=== PATIENT | male | born 1950 | race Two or more races ===

== ENCOUNTER 2018-08-31 05:35 | Inpatient (IN) | payer OTHER ==
[~2018-08-31] VITALS: Ht 182.9 cm; Wt 104.3 kg
[2018-08-31] MEDS ORDERED: oxyCODONE HCL SR 10MG TAB.SR.12H PO ONE (05:46)
[2018-08-31] MEDS ORDERED: CELECOXIB 100 MG CAPSULE ONE (05:46)
[2018-08-31] MEDS ORDERED: ACETAMINOPHEN ES 500 MG TABLET ONE (05:46)
[2018-08-31] MEDS ORDERED: METOCLOPRAMIDE HCL 10 MG/2 ML VIAL ONE (05:46)
[2018-08-31] MEDS ORDERED: KETOROLAC TROMETHAMINE INJ 30 MG/ML VIAL ONE ×2 (06:32→10:59)
[2018-08-31] MEDS ORDERED: BACITRACIN 50000 UNITS/VIAL ONE (06:33)
[2018-08-31] MEDS ORDERED: MORPHINE SULFATE INJ 4 MG/ML DISP.SYRIN ONE (06:33)
[2018-08-31] MEDS ORDERED: ANESTHESIA TRAY IN PYXIS 1 EA TRAY MC ONE (06:33)
[2018-08-31] MEDS ORDERED: FENTANYL PF 250MCG/5ML AMPUL ONE (06:41)
[2018-08-31] MEDS ORDERED: MIDAZOLAM HCL 2 MG/2ML VIAL ONE (06:41)
[2018-08-31] MEDS ORDERED: EPINEPHRINE (1:1000) 1 MG/ML AMPUL ONE (06:42)
[2018-08-31] MEDS ORDERED: SUCCINYLCHOLINE CHLORIDE 20 MG/ML VIAL ONE (06:42)
[2018-08-31] MEDS ORDERED: TRANEXAMIC ACID 1,500 MG in IV NS 0.9% 50 ML IV ONE (07:30)
[2018-08-31] MEDS ORDERED: TRANEXAMIC ACID 1,500 MG in SODIUM CHLORIDE IRRIG SOLUTION 85 ML IR ONE (07:30)
[2018-08-31] MEDS ORDERED: oxyCODONE IR immediate release 5 MG ONE (10:57)
[2018-08-31] MEDS ORDERED: ASPIRIN 600 MG/SUPP.RECT RC ONE (11:00)
--- NOTE | 2018-08-31 12:05 | NUR ---
GERIATRIC PERSONAL CARE AIDE NOTES PT RECEIVED S/P RIGHT TOTAL KNEE REPLACEMENT, PT AWAKE ALERT AND VERBALLY RESPONSIVE ABLE TO MAKE NEEDS KNOWN. RESPIRATIONS EVEN AND UNLABORED, DENIES ANY PAIN OR DISCOMFORT AT THIS TIME. IV ACCESS LFA 18G PATENT AND INTACT NO REDNESS OR INFILTRATION NOTED. DRESSING TO RIGHT KNEE WITH NO BLEEDING OR DRAINAGE NOTED. ICE PACK APPLIED FOR PAIN RELIEF. ABDOULAYE AYON MADE AWARE OF PT'S ARRIVAL FOR ADMISSION ORDERS WILL CONTINUE TO MONITOR AND ASSIST WITH ADMISSION PROCESS
[2018-08-31] MEDS ORDERED: IV D5/0.45 NACL 1,000 ML IV PRN (12:30)
[2018-08-31] MEDS ORDERED: HYDROMORPHONE 1 MG/1 ML DISP.SYRIN IV PRN (12:30)
[2018-08-31] MEDS ORDERED: DOCUSATE SODIUM 100 MG CAPSULE PO PRN (12:30)
[2018-08-31] MEDS ORDERED: ZOLPIDEM TARTRATE 5 MG TABLET PO PRN ×2 (12:30→15:30)
[2018-08-31] MEDS ORDERED: ACETAMINOPHEN 325 MG TABLET PO PRN (12:30)
[2018-08-31] MEDS ORDERED: MAGNESIUM HYDROXIDE 30 ML UDC PO PRN ×2 (13:00→15:30)
[2018-08-31] MEDS: HYDROCODONE/APAP 5/325MG 1 EACH TABLET PO SCH ×3 (13:16→21:49)
[2018-08-31] MEDS ORDERED: MELO-107 PO (13:42)
[2018-08-31] MEDS ORDERED: MAG HYDROX/AL HYDROX/SIMETH 30 ML UDC PO PRN (15:30)
[2018-08-31 16:00] VITALS: BP 108/67
[2018-08-31] MEDS: ANCEF 1 GM/50 ML D5W IV SCH ×2 (16:47)
[2018-08-31] MEDS: CELECOXIB 100 MG CAPSULE PO SCH (16:49)
[2018-08-31] MEDS: ONDANSETRON HCL/PF 4 MG/2 ML VIAL IVP SCH (18:29)
[2018-08-31] MEDS: KETOROLAC TROMETHAMINE INJ 30 MG/ML VIAL IV SCH (18:30)
--- NOTE | 2018-08-31 19:28 | NUR ---
RN NOTES PT S/P RIGHT TOTAL KNEE REPLACEMENT, PT AWAKE ALERT AND VERBALLY RESPONSIVE ABLE TO MAKE NEEDS KNOWN. RESPIRATIONS EVEN AND UNLABORED, DENIES ANY PAIN OR DISCOMFORT AT THIS TIME. IV ACCESS LFA 18G PATENT AND INTACT NO REDNESS OR INFILTRATION NOTED. DRESSING TO RIGHT KNEE WITH NO BLEEDING OR DRAINAGE NOTED. ICE PACK APPLIED FOR PAIN RELIEF THROUGHOUT SHIFT. PATIENT KEPT CLEAN DRY AND COMFORTABLE, CONNER CATHETER IN PLACE, AND DRAINING YELLOW URINE, ENDORSED TO NEXT SHIFT FOR CONTINUITY OF CARE
--- NOTE | 2018-08-31 19:33 | NUR ---
RN OPENING NOTES RECEIVED PATIENT AWAKE, RESTING COMFORTABLY IN BED. FAMILY IS AT BEDSIDE. PATIENT IS A/O X 4. NO SIGNS OF RESPIRATORY DISTRESS AND PATIENT DENIES SHORTNESS OF BREATH. SURGICAL SITE SHOWS NO SIGNS OF BLEEDING. PATIENT HAS SENSATION THROUGHOUT THE RIGHT LEG. PATIENT DENIES PAIN AT THIS TIME. IV SITE PATENT AND INTACT. SAFETY PRECAUTIONS IMPLEMENTED. CALL LIGHT WITHIN REACH. WILL CONTINUE TO MONITOR PATIENT THROUGHOUT THE SHIFT.
[2018-08-31 20:00] VITALS: BP 106/62
[2018-08-31 20:21] VITALS: BP 106/62
[2018-09-01] MEDS: ANCEF 1 GM/50 ML D5W IV SCH ×2 (00:34)
[2018-09-01] MEDS: KETOROLAC TROMETHAMINE INJ 30 MG/ML VIAL IV SCH ×4 (00:35→17:31)
[2018-09-01] MEDS: ONDANSETRON HCL/PF 4 MG/2 ML VIAL IVP SCH ×3 (00:35→12:44)
[2018-09-01] MEDS: HYDROCODONE/APAP 5/325MG 1 EACH TABLET PO SCH ×6 (01:31→21:11)
[2018-09-01] MEDS ORDERED: KETOROLAC TROMETHAMINE INJ 30 MG/ML VIAL ONE (04:50)
[2018-09-01 06:21] LABS: HEMATOCRIT 39 % (39-51); LYMPHOCYTES # (AUTO) 1.5 /CMM (0.8-4.8); LYMPHOCYTES % (AUTO) 9.1 % (20.0-44.0); MEAN CORPUSCULAR HGB CONC 33 g/dl (31.0-36.0); MEAN CORPUSCULAR VOLUME 85 fL (80-96); MONOCYTES # (AUTO) 1.5 /CMM (0.1-1.30); MONOCYTES % (AUTO) 9.1 % (2.0-12.0); NEUTROPHILS # (AUTO) 13.8 /CMM (1.8-8.9); NEUTROPHILS % (AUTO) 81.8 % (43.0-81.0); PLATELET COUNT (AUTO) 159 /CMM (150-450); RED BLOOD CELL COUNT(AUTO) 4.61 MIL/uL (4.5-6.0); WHITE BLOOD COUNT (AUTO) 16.9 K/uL (4.3-11.0)
--- NOTE | 2018-09-01 06:48 | NUR ---
RN CLOSING NOTES PATIENT IS AWAKE, RESTING COMFORTABLY IN BED. PATIENT IS A/O X 4. NO SIGNS OF RESPIRATORY DISTRESS. PATIENT DENIES SHORTNESS OF BREATH. NO SIGNS OF BLEEDING AT THIS TIME. IV SITE PATENT AND INTACT. SAFETY PRECAUTIONS IMPLEMENTED. CALL LIGHT WITHIN REACH. WILL ENDORSE TO AM RN.
[2018-09-01 06:56] LABS: POTASSIUM 4.1 mmol/L (3.5-5.1)
[2018-09-01 06:57] LABS: ALBUMIN 3.2 g/dL (3.4-5.0); BILIRUBIN,TOTAL 0.6 mg/dL (0.2-1.0); CREATININE 0.9 mg/dL (0.6-1.3); MAGNESIUM 2.1 mg/dL (1.8-2.4); PHOSPHORUS 3.5 mg/dL (2.5-4.9); TOTAL PROTEIN, SERUM 6.7 g/dL (6.4-8.2)
--- NOTE | 2018-09-01 07:25 | NUR ---
MS/RN OPENING NOTE THE PATIENT ALERT AND ORIENTED X4. IN ROOM AIR AND DENIES SOB. RESPIRATION REGULAR AND UNLABORED. DENIES PAIN. THE PATIENT IN NO APPARENT DISTRESS. LAC G 18 PATENT AND SALINE LOCKED. BED LOW AND LOCKED. SIDE RAILS UP X3. CALL LIGHT WITHIN REACH. WILL CONTINUE TO MONITOR.
[2018-09-01 08:00] VITALS: BP 94/57
[2018-09-01] MEDS: CELECOXIB 100 MG CAPSULE PO SCH ×2 (08:27→16:27)
[2018-09-01] MEDS: ASPIRIN 325 MG TABLET PO SCH ×2 (08:27→16:26)
[2018-09-01 16:00] VITALS: BP 98/61
--- NOTE | 2018-09-01 17:03 | NUR ---
MS/RN NOTE PER SUPERINTENDENT DRILLING AND PRODUCTION GABO COLACE 100 MG BID PRN IS CHANGED TO COLACE 100 MG BID. READ BACK, VERIFIED. NOTED AND CARRIED OUT.
[2018-09-01] MEDS: DOCUSATE SODIUM 100 MG CAPSULE PO SCH (17:24)
--- NOTE | 2018-09-01 18:11 | NUR ---
MS/RN CLOSING NOTE THE PATIENT ALERT AND ORIENTED X4. IN ROOM AIR AND SATURATION IS AT 97%. DENIES SOB. RESPIRATION REGULAR AND UNLABORED. DENIES PAIN. THE PATIENT IN NO APPARENT DISTRESS. RIGHT KNEE DRESSING INTACT AND NO STRIKE THRU NOTED. PEDAL PULSES PRESENT. LAC G 18 PATENT AND SALINE LOCKED. CONNER CATH IN PLACE AND DRAINING FREELY. NOTED CLEAR AND YELLOW COLOR URINE. BED LOW AND LOCKED. SIDE RAILS UP X3. CALL LIGHT WITHIN REACH. WILL ENDORSE TO SHADOW GRAPH WEIGHT OPERATOR.
--- NOTE | 2018-09-01 19:36 | NUR ---
RN OPENING NOTES RECEIVED PATIENT AWAKE RESTING COMFORTABLY IN BED. FAMILY IS AT BEDSIDE. A/O X 4. NO SIGNS OF RESPIRATORY DISTRESS. DENIES SHORTNESS OF BREATH. DENIES PAIN AT THIS TIME. SURGICAL SITE HAS NO SIGNS OF ACTIVE BLEEDING. DRESSING INTACT. CONNER CATH IN PLACE AND FLOWING FREELY. IV SITE INTACT AND PATENT. SAFETY PRECAUTIONS IMPLEMENTED. CALL LIGHT WITHIN REACH. WILL CONTINUE TO MONITOR PATIENT THROUGHOUT THE SHIFT.
[2018-09-01 20:00] VITALS: BP 107/60
[2018-09-01 20:03] VITALS: BP 107/60
[2018-09-02] MEDS: KETOROLAC TROMETHAMINE INJ 30 MG/ML VIAL IV SCH ×3 (00:03→12:00)
[2018-09-02] MEDS: HYDROCODONE/APAP 5/325MG 1 EACH TABLET PO SCH ×3 (01:06→08:48)
[2018-09-02 06:21] LABS: CALCIUM, SERUM 8.3 mg/dL (8.5-10.1); CREATININE 0.8 mg/dL (0.6-1.3); POTASSIUM 4.3 mmol/L (3.5-5.1)
[2018-09-02 06:24] LABS: BASOPHILS % (AUTO) 0.3 % (0.0-2.0); EOSINOPHILS % (AUTO) 0.7 % (0.0-6.0); HEMATOCRIT 37 % (39-51); HEMOGLOBIN 12.4 g/dL (13.5-17.5); LYMPHOCYTES # (AUTO) 2.5 /CMM (0.8-4.8); LYMPHOCYTES % (AUTO) 20.1 % (20.0-44.0); MEAN CORPUSCULAR HGB CONC 33 g/dl (31.0-36.0); MEAN CORPUSCULAR VOLUME 85 fL (80-96); MONOCYTES # (AUTO) 1.2 /CMM (0.1-1.30); MONOCYTES % (AUTO) 9.7 % (2.0-12.0); NEUTROPHILS # (AUTO) 8.5 /CMM (1.8-8.9); NEUTROPHILS % (AUTO) 69.2 % (43.0-81.0); PLATELET COUNT (AUTO) 152 /CMM (150-450); RED BLOOD CELL COUNT(AUTO) 4.38 MIL/uL (4.5-6.0); WHITE BLOOD COUNT (AUTO) 12.3 K/uL (4.3-11.0)
--- NOTE | 2018-09-02 06:47 | NUR ---
RN CLOSING NOTES PATIENT IS RESTING COMFORTABLY IN BED. NO ACUTE DISTRESS NOTED. NO SIGNS OF SHORTNESS OF BREATH. PATIENT HAS NO FACIAL GRIMACING. CONNER CATHETER RUNNING WELL. DRESSING INTACT. IV SITE INTACT AND PATENT. PATIENT HAD ADEQUATE REST FOR MOST OF THE SHIFT. ALL NEEDS WERE MET. SAFETY PRECAUTIONS IMPLEMENTED. CALL LIGHT WITHIN REACH. WILL ENDORSE TO ONCOMING AM RN.
--- NOTE | 2018-09-02 07:55 | NUR ---
M/S RN OPENING NOTES RECEIVED PATIENT A/O X4 AND ABLE TO MAKE NEEDS KNOWN, RESPONSIVE TO ALL STIMULI. RESPIRATION EVEN AND NON LABORED WITH NO ACUTE RESPIRATORY DISTRESS, ON 2LPM VIA NASAL CANNULA AND ABLE TO TOLERATE WELL. ABDOMEN SOFT AND NON DISTENDED WITH ACTIVE BOWEL SOUNDS TO ALL QUADRANTS, FC IN PLACE WITH YELLOW CLEAR URINE WITH ORDER TO BE REMOVED TODAY, PATIENT NOTIFIED. SKIN WARM TO TOUCH AND DRY. PATIENT COMPLAIN OF PAIN 5/10 ON RIGHT KNEE, MEDICATION DUE AT 9AM AND PATIENT STATED HE CAN WAIT SINCE PAIN IS BEARABLE. IV SITE AT LEFT FOREARM GAUGE 18, PATENT IN FLUSHING POSSIBLE DC IF CLEARED BY PT. ALL CONCERNS ADDRESSED. PLACED CALL LIGHT WITHIN REACH FOR SAFETY. WILL CONTINUE TO EVALUATE CARE.
--- NOTE | 2018-09-02 08:10 | NUR ---
M/S RN NOTES PATIENT SEEN BY HUNG WITH NEW ORDER FOR DC. BUTLER TO REMOVED CONNER CATHETER. PATIENT NOTIFIED.
[2018-09-02 08:29] VITALS: BP 102/69
[2018-09-02] MEDS: CELECOXIB 100 MG CAPSULE PO SCH (08:48)
[2018-09-02] MEDS: DOCUSATE SODIUM 100 MG CAPSULE PO SCH (08:48)
[2018-09-02] MEDS: ASPIRIN 325 MG TABLET PO SCH (08:48)
--- NOTE | 2018-09-02 08:55 | NUR ---
M/S RN NOTES CONNER CATHETER REMOVED WITH CLEAR YELLOW URINE, 600 ML. URINAL ON BEDSIDE AND CALL LIGHT WITHIN REACH FOR BRP. WILL CONTINUE TO EVALUATE CARE
--- NOTE | 2018-09-02 12:10 | NUR ---
M/S EVAPORATOR REPAIRER NOTES PATIENT DISCHARGED IN STABLE CONDITION, WHEELED OUT BY TSERING POP VIA WHEELCHAIR ACCOMPANIED BY 2 FAMILY MEMBERS. PATIENT A/O X 4, NO ASSESSED RESPIRATORY DISTRESS SATING 100% IN ROOM AIR. DENIES PAIN AND DISCOMFORT AND REFUSED TO TAKE TORADOL IV SCHEDULED 1200 BECAUSE IT'LL MAKE HIM SLEEPY. SKIN WARM TO TOUCH AND DRY. RIGHT KNEE INCISION DUE TO S/P RIGHT TOTAL KNEE REPLACEMENT WITH DRESSING INTACT AND NOT SOILED. ABLE TO URINATE VIA URINAL WITH CLEAR LIGHT YELLOW. EXIT CARE, FOLLOW UP WITH PHYSICIAN INSTRUCTION AND PRESCRIPTION GIVEN ORDERED. IV SITE PULLED OUT AND ID BAND REMOVED PER HOSPITAL PROTOCOL. PATIENT LEFT IN SAFE CONDITION.
== END 2018-09-02 12:15 | disposition home health service (06) | DRG 470 ==
LOC: DS 05:35 → MED 12:01
PROVIDERS: ADMIT Nurse Practitioner Acute Care; ATTEND Nurse Practitioner Acute Care
PROC: 0SRC0J9 Replacement of Right Knee Joint with Synthetic Substitute, Cemented, Open Approach (ICD-10-PCS; principal; 2018-08-31)
DX: M17.11 Unilateral primary osteoarthritis, right knee (principal); D72.829 Elevated white blood cell count, unspecified
CPT/HCPCS: 36415; 73560-TC; 80048-TC; 80053-TC; 80061-TC; 83735-TC; 84100-TC; 85025-TC; 86850-TC; 86921-TC; 87081-TC; 88305-TC; 88311-TC; 97116-TC; 97530-TC; 97760-TC; A4216; A4217; A6209; A6402; C1713; G0378; J0171; J0330; J0690; J1100; J1170; J1885; J2250; J2270; J2405; J2704; J2710; J2765; J3010; J3490; J7050; J7060; L1830

== ENCOUNTER 2018-09-11 18:22 | Emergency (ER) | payer MEDICARE, OTHER ==
[~2018-09-11] VITALS: Ht 182.9 cm; Wt 108.9 kg
[~2018-09-11 18:22] MED LIST: MELO-107 PO
--- NOTE | 2018-09-11 19:03 | NUR ---
patient came in due to possible cellulitis, on room air, breathing evenly and unlabored. Kept comfortable, will continue to monitor accordingly.
--- NOTE | 2018-09-11 19:05 | NUR ---
report given to Franco COBB for kim.
--- NOTE | 2018-09-11 19:05 | NUR ---
RECEIVED REPORT FROM JORDYN DE LEON FOR ALBIN. PT IN BED. US AT BEDSIDE.
[2018-09-11 19:08] LABS: BASOPHILS # (AUTO) 0.1 /CMM (0.0-0.2); BASOPHILS % (AUTO) 0.5 % (0.0-2.0); EOSINOPHILS % (AUTO) 3.4 % (0.0-6.0); HEMATOCRIT 40 % (39-51); HEMOGLOBIN 13.2 g/dL (13.5-17.5); LYMPHOCYTES # (AUTO) 2.5 /CMM (0.8-4.8); LYMPHOCYTES % (AUTO) 22.3 % (20.0-44.0); MEAN CORPUSCULAR HGB CONC 33 g/dl (31.0-36.0); MEAN CORPUSCULAR VOLUME 87 fL (80-96); MONOCYTES # (AUTO) 0.8 /CMM (0.1-1.30); MONOCYTES % (AUTO) 7.5 % (2.0-12.0); NEUTROPHILS # (AUTO) 7.3 /CMM (1.8-8.9); NEUTROPHILS % (AUTO) 66.3 % (43.0-81.0); PLATELET COUNT (AUTO) 311 /CMM (150-450); RED BLOOD CELL COUNT(AUTO) 4.65 MIL/uL (4.5-6.0); WHITE BLOOD COUNT (AUTO) 11.1 K/uL (4.3-11.0)
[2018-09-11 19:15] LABS: CALCIUM, SERUM 8.7 mg/dL (8.5-10.1); POTASSIUM 3.8 mmol/L (3.5-5.1)
--- NOTE | 2018-09-11 19:18 | NUR ---
US in progress at the bedside.
[2018-09-11 19:21] LABS: ALBUMIN 3.4 g/dL (3.4-5.0); BILIRUBIN,DIRECT 0.1 mg/dL (0.0-0.2); BILIRUBIN,TOTAL 0.6 mg/dL (0.2-1.0); TOTAL PROTEIN, SERUM 7.8 g/dL (6.4-8.2)
--- NOTE | 2018-09-11 20:09 | NUR ---
IV removed. Catheter intact and site benign. Pressure and 4x4 applied to site. No bleeding noted.Patient discharged to home in stable condition. Written and verbal after care instructions given. Patient verbalizes understanding of instruction. PT TO F/U WITH DR LESTER, ORTHOPEDIST. PT HAS A KNEE IMMOBILIZER AND A WALKER. PT AMBULATED OUT WITH A SLOW STEADY GAIT. VSS. PT'S DAUGHTER IS DRIVING PT HOME.
[2018-09-11 20:11] VITALS: BP 115/66
== END 2018-09-11 20:13 | disposition home or self-care (01) ==
LOC: ER 18:28
DX: S80.01XA Contusion of right knee, initial encounter (principal); Z98.890 Other specified postprocedural states; Z60.2 Problems related to living alone; Z48.01 Encounter for change or removal of surgical wound dressing; X58.XXXA Exposure to other specified factors, initial encounter; Y93.89 Activity, other specified; Y92.89 Other specified places as the place of occurrence of the external cause; Y99.8 Other external cause status
CPT/HCPCS: 36415; 71045-TC; 73560-TC; 80048-TC; 80076-TC; 83605-TC; 83690-TC; 85025-TC; 85730-TC; 87040-TC; 93971-TC